=== PATIENT | female | born 1980 | race Caucasian/White ===

== ENCOUNTER 2016-10-07 22:29 | Emergency (ER) | payer MEDICAID ==
[2016-10-08 02:12] VITALS: BP 143/90
== END 2016-10-08 02:12 | disposition home or self-care (01) ==
LOC: ED 22:29
DX: R10.13 Epigastric pain (principal); Z87.19 Personal history of other diseases of the digestive system
CPT/HCPCS: C9113; J2405; J2765; Q0162

== ENCOUNTER 2016-11-14 09:24 | Emergency (ER) | payer MEDICAID ==
[~2016-11-14] VITALS: Ht 165.1 cm; Wt 112.9 kg
[2016-11-14 09:32] VITALS: BP 123/83
== END 2016-11-14 10:44 | disposition home or self-care (01) ==
LOC: ED 09:24
DX: H10.12 Acute atopic conjunctivitis, left eye (principal); E66.9 Obesity, unspecified

== ENCOUNTER 2017-02-21 21:21 | Emergency (ER) | payer MEDICAID ==
[2017-02-21 23:24] LABS: BASOPHIL % 0.4 % (0-2); PLATELET COUNT 397 x10^3mcL (130-400)
[2017-02-21 23:29] LABS: CARBON DIOXIDE 25.6 mmol/L (21-32); CREATININE SERUM 1.1 mg/dL (0.6-1.0); POTASSIUM SERUM 4.3 mmol/L (3.5-5.1)
[2017-02-21 23:32] LABS: RED CELL DISTRIBUTION WIDTH 18.3 % (11.5-14.5); UA SPECIFIC GRAVITY 1.015 (1.005-1.035); microscopic required? YES; urine erythrocyte 1+ (NEGATIVE)
[2017-02-22 00:20] VITALS: BP 132/78
== END 2017-02-22 00:20 | disposition home or self-care (01) ==
LOC: ED 21:21
PROVIDERS: Specialist
DX: D25.9 Leiomyoma of uterus, unspecified (principal); N83.201 Unspecified ovarian cyst, right side; Z87.19 Personal history of other diseases of the digestive system
CPT/HCPCS: 36415; J1885

== ENCOUNTER 2017-04-24 00:35 | Emergency (ER) | payer MEDICAID ==
[~2017-04-24] VITALS: Ht 188 cm; Wt 113.9 kg
[2017-04-24 00:41] VITALS: BP 137/98; Ht 188 cm; Wt 113.9 kg
== END 2017-04-24 01:34 | disposition home or self-care (01) ==
LOC: ED 00:35
DX: B34.9 Viral infection, unspecified (principal); R07.89 Other chest pain

== ENCOUNTER 2018-05-30 07:26 | Emergency (ER) | payer MEDICAID ==
[~2018-05-30] VITALS: Ht 160 cm; Wt 113.9 kg
[2018-05-30 07:30] VITALS: Ht 160 cm; Wt 113.9 kg
[2018-05-30 09:44] VITALS: BP 148/87
== END 2018-05-30 09:44 | disposition home or self-care (01) ==
LOC: ED 07:26
DX: H66.91 Otitis media, unspecified, right ear (principal); J98.01 Acute bronchospasm; R05 Cough; R07.89 Other chest pain; Z98.890 Other specified postprocedural states; E66.01 Morbid (severe) obesity due to excess calories; Z68.41 Body mass index [BMI] 40.0-44.9, adult
CPT/HCPCS: 36415; 82962